=== PATIENT | male | born 1950 | race Caucasian/White ===

== ENCOUNTER 2017-10-01 13:28 | Emergency (ER) | payer MEDICARE ==
[~2017-10-01] VITALS: Ht 188 cm; Wt 100.0 kg
[~2017-10-01 13:28] MED LIST: ALPRAZOLAM0.5 MG PO; AMLODIPINE10 MG PO; AMLODIPINE5 MG PO; AVONEX30 MCG; AVONEX30 MCG IM; AVONEX30 MCG SC; BABY ASPIRIN81 MG OR; BACLOFEN10 MG PO; BACTROBAN2 % EX; BENICAR HCT1 TA2 PO; BENICAR40 MG; CIPRO500 MG OR; CIPRO500 MG PO; CIPROFLOXACIN500 M1 PO; CIPROFLOXACN500 MG PO; CLONIDINE0.1 MG PO; DILAUDID2 MG OR; E.E.S. 400400 MG OR; ENALAPRIL10 MG PO; ENALAPRIL20 MG PO; FLEXERIL PO; FLUARIX QUADRIV1 INJ IM; FLULAVAL IM; HYDRALAZINE25 MG PO; HYDROCHLOROT25 MG PO; LOPRESSOR50 M1 PO; LORTAB 10 OR; LORTAB 1010 MG PO; METFORMIN500 MG PO; METOPROL TAR50 MG PO; METOPROLOL TART50 MG PO; MOMETASONE FURO0.11 EX; PERCOCET 5/325M1 TAB OR
[2017-10-01 15:20] LABS: URINE BILIRUBIN - DIPSTICK NEGATIVE (NEGATIVE); URINE BLOOD DIPSTICK MODERATE (NEGATIVE); URINE COLOR YELLOW; URINE GLUCOSE - DIPSTICK NEGATIVE (NEGATIVE); URINE KETONE NEGATIVE (NEGATIVE); URINE PH 5.5 (4.5-8.0); URINE PROTEIN - DIPSTICK 100 mg/dL (NEG-TRACE); URINE SPECIFIC GRAVITY 1.025; URINE UROBILINOGEN - DIPSTICK 0.2 E.U./dL (0.2)
[2017-10-01 15:22] LABS: URINE CLARITY HAZY; URINE LEUK ESTERASE SMALL (NEGATIVE); URINE NITRITE - DIPSTICK POSITIVE (Negative)
[2017-10-01 15:30] LABS: INFLUENZA A NONE DETECTED (NONE DETECT); INFLUENZA B NONE DETECTED (NONE DETECT); URINE BACTERIA RARE hpf
[2017-10-01 15:40] LABS: HEMATOCRIT 33.3 % (39.0-50.0); HEMOGLOBIN 10.5 g/dl (14.0-18.0); IMMATURE GRANULOCYTES 0.8 % (0.0-1.0); MEAN CELL VOLUME 86.3 fL CALC (80.0-100.0); MEAN CORPUSCULAR HGB 27.2 pG CALC (26.0-32.0); MEAN CORPUSCULAR HGB CONC 31.5 g/L CALC (32.0-36.0); NEUT# 10.32 thou/uL (1.82-7.42); RED BLOOD COUNT 3.86 mill/uL (4.70-6.10); RED CELL DISTRI WIDTH 13.8 % (11.5-15.5)
[2017-10-01 15:43] LABS: CREATININE 1.7 mg/dL (0.7-1.3); POTASSIUM 4.4 mmol/l (3.5-5.1)
[2017-10-01 20:24] VITALS: BP 101/57
== END 2017-10-01 20:27 | disposition short-term general hospital (02) ==
LOC: ED 13:28
PROVIDERS: Family Medicine
DX: R91.8 Other nonspecific abnormal finding of lung field (principal); R16.0 Hepatomegaly, not elsewhere classified; N39.0 Urinary tract infection, site not specified; E11.9 Type 2 diabetes mellitus without complications; L89.159 Pressure ulcer of sacral region, unspecified stage; I11.9 Hypertensive heart disease without heart failure; B96.1 Klebsiella pneumoniae [K. pneumoniae] as the cause of diseases classified elsewhere; Z85.50 Personal history of malignant neoplasm of unspecified urinary tract organ; Z90.5 Acquired absence of kidney; Z95.5 Presence of coronary angioplasty implant and graft; Z79.01 Long term (current) use of anticoagulants; B96.4 Proteus (mirabilis) (morganii) as the cause of diseases classified elsewhere; J20.9 Acute bronchitis, unspecified

== ENCOUNTER 2017-11-04 05:50 | Emergency (ER) | payer MEDICARE ==
[~2017-11-04] VITALS: Ht 188 cm; Wt 90.9 kg
[2017-11-04 06:44] LABS: HEMATOCRIT 36.7 % (39.0-50.0); IMMATURE GRANULOCYTES 0.9 % (0.0-1.0); MEAN CELL VOLUME 86.8 fL CALC (80.0-100.0); NEUT# 10.7 thou/uL (1.82-7.42); RED BLOOD COUNT 4.23 mill/uL (4.70-6.10); RED CELL DISTRI WIDTH 14.6 % (11.5-15.5)
[2017-11-04 06:52] LABS: ANION GAP 16 (6-22 (CALC)); BILIRUBIN, TOTAL 0.5 mg/dL (0.0-1.4); BUN 50 mg/dL (8-23); BUN/CREATININE RATIO 36 (12-20 (CALC)); CARBON DIOXIDE 23 mmol/l (22-30); CHLORIDE 110 mmol/l (95-108); CREATININE 1.4 mg/dL (0.7-1.3); GFR 50 ML/MIN (>=60 (CALC)); GFR FOR AFR.AMER. > 60 ML/MIN (>=60 (CALC)); POTASSIUM 4.7 mmol/l (3.5-5.1); SGOT/AST 33 u/l (19-48); SGPT/ALT 46 u/l (11-66); SODIUM 144 mmol/l (137-146)
[2017-11-04 06:55] LABS: ALKALINE PHOSPHATASE 301 u/l (38-126)
[2017-11-04 07:03] LABS: MYOGLOBIN 95 ng/mL (0 - 121)
[2017-11-04 07:09] LABS: URINE BILIRUBIN - DIPSTICK NEGATIVE (NEGATIVE); URINE BLOOD DIPSTICK NEGATIVE (NEGATIVE); URINE CLARITY SL CLOUDY; URINE COLOR YELLOW; URINE GLUCOSE - DIPSTICK NEGATIVE (NEGATIVE); URINE KETONE NEGATIVE (NEGATIVE); URINE LEUK ESTERASE MODERATE (NEGATIVE); URINE NITRITE - DIPSTICK NEGATIVE (Negative); URINE PROTEIN - DIPSTICK TRACE mg/dL (NEG-TRACE); URINE UROBILINOGEN - DIPSTICK 0.2 E.U./dL (0.2)
[2017-11-04 07:16] LABS: URINE WBC 20-50 WBC/hpf (0-5)
[2017-11-04 07:17] LABS: URINE BACTERIA FEW hpf
[2017-11-04 10:38] VITALS: BP 145/62
== END 2017-11-04 10:39 | disposition short-term general hospital (02) ==
LOC: ED 05:50
PROVIDERS: Emergency Medicine
DX: L89.154 Pressure ulcer of sacral region, stage 4 (principal); N39.0 Urinary tract infection, site not specified; R53.1 Weakness; R00.0 Tachycardia, unspecified; I10 Essential (primary) hypertension; C78.02 Secondary malignant neoplasm of left lung; C78.01 Secondary malignant neoplasm of right lung; C79.51 Secondary malignant neoplasm of bone